=== PATIENT | male | born 1940 | race Caucasian/White ===

== ENCOUNTER 2018-07-07 17:39 | Emergency (ER) | payer OTHER ==
[~2018-07-07] VITALS: Ht 175.3 cm; Wt 122.5 kg
[~2018-07-07 17:39] MED LIST: ACET325 PO; CEFU250 PO; DULERA 100 MCG/13 GM IH; Exforge 10-3201 EACH PO; HYDACE5 PO; HYDR1TAB94 PO; LEVFLO500 PO; MULVITMIND PO; TIOT18; TRAM50 PO
[2018-07-07 18:40] LABS: BASOPHILS ABSOLUTE AUTO 0.06 K/mm3 (0.00-0.23); BASOPHILS PERCENT AUTO 1 % (0-2); EOSINOPHILS PERCENT AUTO 3 % (0-6); Hematocrit 32.2 % (37.0-53.0); IMMATURE GRAN ABSOLUTE AUTO 0.09 K/mm3 (0.00-0.10); IMMATURE GRAN PERCENT AUTO 1 % (0-1); LYMPHOCYTES ABSOLUTE AUTO 1.48 K/mm3 (0.84-5.20); LYMPHOCYTES PERCENT AUTO 12 % (21-46); MONOCYTES ABSOLUTE AUTO 1.14 K/mm3 (0.16-1.47); MONOCYTES PERCENT AUTO 9 % (4-13); Mean Corpuscular HGB 28.5 pg (26.0-34.0); Mean Corpuscular HGB Conc 31.1 g/dL (31.5-36.5); NEUTROPHILS ABSOLUTE AUTO 8.94 K/mm3 (1.96-9.15); NEUTROPHILS PERCENT AUTO 74 % (41-73); RDW Coefficient Variation 15.6 % (11.7-14.2); RDW Standard Deviation 51.4 fL (35.1-46.3); Red Blood Cell Count 3.51 M/mm3 (4.30-5.90); White Blood Cell Count 12.11 K/mm3 (4.00-11.30)
[2018-07-07 18:42] LABS: Mean Corpuscular Volume 92 fL (80-100); Mean Platelet Volume 9.6 fL (9.1-12.4); Platelet Count 214 K/mm3 (150-400)
[2018-07-07 19:18] LABS: Albumin, Blood 2.9 g/dL (3.4-5.0); Albumin/Globulin Ratio 0.7 (0.8-1.8); Bilirubin, Total 0.4 mg/dL (0.1-1.0); Bun/Creatinine Ratio 6.6 (12.0-20.0); Calcium, Blood 8.2 mg/dL (8.5-10.1); Creatinine, Blood 9.82 mg/dL (0.60-1.20); Globulin, Blood 4.3 g/dL (2.2-4.0); Potassium, Blood 4.2 mmol/L (3.5-5.5); Total Protein, Blood 7.2 g/dL (6.4-8.2)
[2018-07-07] MEDS ORDERED: **INCOMPLETE MED REC (19:54)
[2018-07-07] MEDS ORDERED: Exforge 10-3201 EACH PO ×2 (19:57→20:01)
[2018-07-07] MEDS ORDERED: ATOR10 PO (19:57)
[2018-07-07] MEDS ORDERED: TRAM50 PO (20:02)
[2018-07-07] MEDS ORDERED: FURO40 PO (20:02)
[2018-07-07] MEDS ORDERED: COMBIVENT RESPIM4 GM INH (20:02)
[2018-07-07] MEDS ORDERED: ALBU3IS INH (20:02)
[2018-07-07] MEDS ORDERED: K-Dur 20 meq T20 MEQ PO (20:03)
[2018-07-07] MEDS ORDERED: CEFP250 PO (20:23)
== END 2018-07-07 21:15 | disposition home or self-care (01) ==
LOC: ER 17:39
PROVIDERS: Physician Assistant
DX: N17.9 Acute kidney failure, unspecified (principal); N13.9 Obstructive and reflux uropathy, unspecified; J44.9 Chronic obstructive pulmonary disease, unspecified; C61 Malignant neoplasm of prostate; Z79.899 Other long term (current) drug therapy; Z79.891 Long term (current) use of opiate analgesic; I10 Essential (primary) hypertension; Z87.891 Personal history of nicotine dependence
CPT/HCPCS: 36415; 51702; 51798; 80053; 85025; 94640; 99283-25; J7030

== ENCOUNTER → 2019-06-19 | Outpatient (CLI) | payer OTHER ==
[~2019-06-19] MED LIST changes: +**INCOMPLETE MED REC; +ALBU3IS INH; +ATOR10 PO; +CEFP250 PO; +COMBIVENT RESPIM4 GM INH; +FURO40 PO; +K-Dur 20 meq T20 MEQ PO
== END | disposition home or self-care (01) ==
LOC: LAB SHORT 13:21 → LAB 13:21
DX: N39.0 Urinary tract infection, site not specified (principal)
CPT/HCPCS: 87086

== ENCOUNTER 2019-06-25 19:58 | Inpatient (IN) | payer OTHER ==
[~2019-06-25] VITALS: Ht 175.3 cm; Wt 77.1 kg
[~2019-06-25 19:58] MED LIST changes: -ALBU3IS INH; +Duoneb 2.5-0.5 M3 ML NEB
[2019-06-25 21:17] LABS: Base Excess Venous -10.7 mmol/L; Bicarbonate Venous 17.1 mmol/L (24.0-30.0); PCO2 Venous 30.2 mmHg (38-42); PO2 Venous 106 mmHg (38-42); pH Blood Venous 7.32 (7.34-7.37)
[2019-06-25 21:21] LABS: BASOPHILS ABSOLUTE AUTO 0.05 K/mm3 (0.00-0.23); BASOPHILS PERCENT AUTO 1 % (0-2); EOSINOPHILS ABSOLUTE AUTO 0.18 K/mm3 (0.00-0.68); EOSINOPHILS PERCENT AUTO 2 % (0-6); Hematocrit 40.7 % (37.0-53.0); Hemoglobin 13.5 g/dL (13.5-17.5); IMMATURE GRAN ABSOLUTE AUTO 0.07 K/mm3 (0.00-0.10); IMMATURE GRAN PERCENT AUTO 1 % (0-1); LYMPHOCYTES ABSOLUTE AUTO 1.54 K/mm3 (0.84-5.20); LYMPHOCYTES PERCENT AUTO 14 % (21-46); MONOCYTES ABSOLUTE AUTO 1.05 K/mm3 (0.16-1.47); MONOCYTES PERCENT AUTO 10 % (4-13); Mean Corpuscular HGB 28.8 pg (26.0-34.0); Mean Corpuscular HGB Conc 33.2 g/dL (31.5-36.5); Mean Corpuscular Volume 87 fL (80-100); Mean Platelet Volume 12.7 fL (9.1-12.4); NEUTROPHILS PERCENT AUTO 74 % (41-73); Platelet Count 218 K/mm3 (150-400); RDW Coefficient Variation 15.7 % (11.7-14.2); RDW Standard Deviation 50.1 fL (35.1-46.3); Red Blood Cell Count 4.68 M/mm3 (4.30-5.90); White Blood Cell Count 10.99 K/mm3 (4.00-11.30)
[2019-06-25] MEDS ORDERED: FINA5 PO (21:30)
[2019-06-25 21:45] LABS: Beta-hydroxybutyrate 6.5 mg/dL (0.2-2.8)
[2019-06-25 21:50] LABS: Troponin I <0.015 ng/mL (0.000-0.040)
[2019-06-25 21:52] LABS: Alanine Aminotransfer (ALT/SGP 26 U/L (12-78); Albumin, Blood 2.9 g/dL (3.4-5.0); Albumin/Globulin Ratio 0.7 (0.8-1.8); Alk Phos 82 U/L (50-136); Anion Gap 10 mmol/L (6-16); Aspartate Aminotrans (AST/SGOT 13 U/L (12-37); Bilirubin, Total 0.6 mg/dL (0.1-1.0); Blood Urea Nitrogen 95 mg/dL (8-24); Bun/Creatinine Ratio 29.7 (12.0-20.0); CO2, Blood 18 mmol/L (21-32); Calcium, Blood 8.3 mg/dL (8.5-10.1); Chloride, Blood 101 mmol/L (98-108); Globulin, Blood 4.1 g/dL (2.2-4.0); Glomerular Filtration Rate 20 (60-); Glucose, Blood 632 mg/dL (70-99); Potassium, Blood 5.5 mmol/L (3.5-5.5); Sodium, Blood 129 mmol/L (136-145)
[2019-06-26 01:51] LABS: Bun/Creatinine Ratio 30.8 (12.0-20.0); Calcium, Blood 8.1 mg/dL (8.5-10.1); Creatinine, Blood 2.92 mg/dL (0.60-1.20); Potassium, Blood 5.1 mmol/L (3.5-5.5)
[2019-06-26 02:58] LABS: Source, Urine Clean Catch
[2019-06-26 03:01] LABS: Bilirubin, Urine Neg (Neg); Blood, Urine 3+ (Neg); Glucose Qualitative, Urine 4+ (Neg); Ketones, Urine Neg (Neg); Leukocyte Esterase, Urine Neg (Neg); Nitrite, Urine Neg (Neg); Protein, Urine 1+ (Neg); Urobilinogen, Urine NORM (Normal)
[2019-06-26 03:07] LABS: Color, Urine Yellow (P-Yellow)
[2019-06-26 03:08] LABS: Appearance, Urine Clear (Clear); Bacteria Rare /hpf; Squamous Epithelial Cells Rare /hpf (Few); White Blood Cells, Urine Rare /hpf (0-5)
[2019-06-26 05:58] LABS: Bun/Creatinine Ratio 30.7 (12.0-20.0); Calcium, Blood 8.3 mg/dL (8.5-10.1); Creatinine, Blood 2.74 mg/dL (0.60-1.20); Potassium, Blood 4.7 mmol/L (3.5-5.5)
[2019-06-26 17:33] LABS: Bun/Creatinine Ratio 29.8 (12.0-20.0); Calcium, Blood 8.4 mg/dL (8.5-10.1); Creatinine, Blood 2.55 mg/dL (0.60-1.20); Potassium, Blood 5.1 mmol/L (3.5-5.5)
--- NOTE | 2019-06-26 18:23 | NUR ---
[id number] ASSESSMENT PATIENT AND VERBALIZING THEY ARE UNHAPPY WITH INTERRUPTIONS AND BLOOD DRAWS AND THEY BOTH REPORT THEY ARE TIRED AND WANT LEFT ALONE. PT REFUSES BLOOD DRAW AT THIS TIME. PATIENT WILL NOT ALLOW COMPLETE PHYSICAL ADMISSION ASSESSMENT TO BE COMPLETED. PER PATIENTS SHE ASSISTS PATIENT TO SELF CATH AT TIMES HE HAS DIFFICULTY VOIDING.
--- NOTE | 2019-06-26 18:25 | NUR ---
SUMMARY PT SLEEPING AT THIS TIME AND PATIENTS REQUESTS THAT HE NOT BE DISTURBED. PT JONI SHOWER WITH HIS WIFES ASSIST AND STATES VERY TIRED AFTER ACTIVITY. PT AND HIS HAVE NOT BEEN RECEPTIVE TO DIABETIC EDUCATION. PT STATES "HE DOESNT EAT SUGAR AND IT IS THE DOCTORS FAULT HIS SUGAR IS OUT OF CONTROL IT SHOULD HAVE BEEN DISCOVERED BEFORE HIS SUGAR WAS THIS HIGH" PT AND HIS ANGRY AT TIMES BUT THEN APOLOGIZE AND STATE THEY ARE JUST TIRED FROM LACK OF SLEEP AND WORRIED ABOUT HIS MEDICAL CONDITION
[2019-06-27 05:41] LABS: Albumin, Blood 2.7 g/dL (3.4-5.0); Anion Gap 8 mmol/L (6-16); Blood Urea Nitrogen 64 mg/dL (8-24); Bun/Creatinine Ratio 28.8 (12.0-20.0); CO2, Blood 18 mmol/L (21-32); Calcium, Blood 8.8 mg/dL (8.5-10.1); Chloride, Blood 116 mmol/L (98-108); Creatinine, Blood 2.22 mg/dL (0.60-1.20); Glomerular Filtration Rate 30 (60-); Glucose, Blood 278 mg/dL (70-99); Phosphorus, Blood 3.7 mg/dL (2.5-4.9); Potassium, Blood 4.9 mmol/L (3.5-5.5); Sodium, Blood 142 mmol/L (136-145)
--- NOTE | 2019-06-27 05:58 | NUR ---
SHIFT SUMMARY PT RESTED WELL T/O NIGHT. AAOX4. PT DENIES DISCOMFORT/NAUSEA/EMESIS. CHEMBG WITH COVERAGE AC+HS. PT MORE COMPLIANT WITH CARE THIS SHIFT. INDEPENDENT IN ROOM + UP TO RESTROOM. AWAITING LABS RESULTS THIS AM. NO ACUTE CHANGES OVER NIGHT. CALL LIGHT IN REACH. PT RESTING AT THIS TIME.
--- NOTE | 2019-06-27 09:49 | NUR ---
CALLED DIETITIAN FOR EDUCATIONAL SUPPORT R/T DIABETIC DIET AND FOOD CHOICES. DIETITIAN VERBALIZED THEY WOULD COME SEE PT TODAY.
--- NOTE | 2019-06-27 16:17 | NUR ---
SHIFT SUMMARY PT AND VERY ANXIOUS ABOUT TREATMENT PLAN AT START OF SHIFT. NEEDING A LOT OF DIABETIC EDUCATION. THIS RN PROVIDED PRINTED HANDOUTS. DIETARY CONSULT OCCURRED TODAY AND PT AND EXPRESS THAT IT WAS VERY HELPFUL AND THAT THEY FEEL MORE COMFORTABLE ABOUT DX AND DIET PLAN. PLANNING ON TEACHING PT HOW TO ADMINISTER INSULIN. PT IS INDEP IN ROOM AND WAS UP IN CHAIR TODAY. PT DOES SELF CATH. TELE IN PLACE. IVF INFUSING PER ORDERS. CALL LIGHT WITHIN REACH.
--- NOTE | 2019-06-27 16:39 | NUR ---
INSULIN ADMIN PT AND EDUCATED ON VERBALLY AND DEMONSTRATED PROPER USE OF INSULIN ADMINISTRATION. GIVEN TEST INSULIN PEN AND TEST SKIN PAD TO PRACTICE.
--- NOTE | 2019-06-27 18:03 | NUR ---
TELE BOX RETURNED TO PCU
[2019-06-28 05:26] LABS: Albumin, Blood 2.5 g/dL (3.4-5.0); Anion Gap 7 mmol/L (6-16); Blood Urea Nitrogen 46 mg/dL (8-24); Bun/Creatinine Ratio 24.7 (12.0-20.0); CO2, Blood 18 mmol/L (21-32); Calcium, Blood 8.4 mg/dL (8.5-10.1); Chloride, Blood 118 mmol/L (98-108); Creatinine, Blood 1.86 mg/dL (0.60-1.20); Glomerular Filtration Rate 37 (60-); Glucose, Blood 225 mg/dL (70-99); Phosphorus, Blood 3.4 mg/dL (2.5-4.9); Potassium, Blood 4.6 mmol/L (3.5-5.5); Sodium, Blood 143 mmol/L (136-145)
--- NOTE | 2019-06-28 05:49 | NUR ---
SHIFT SUMMARY: ANITRA RESTED FOR THE MAJORITY OF THE SHIFT. HE IS A&OX4, USES HIS CALL LIGHT APPROPRIATELY. HE HAS BEEN PLEASANT AND COOPERATIVE THIS SHIFT. HE DID STRAIGHT CATH HIMSELF THIS MORNING, UMEASURED VOID. HE IS HOPEFUL THAT HE MIGHT GET TO GO HOME TODAY. HE WAS RECEPTIVE AND ATTENTIVE DURING EDUCATION. HE DID STATE THAT PHLEBOTOMY HAS NOT BEEN ABLE TO DRAW LABS, OUTPATIENT AND INPATIENT, AND IS THANKFUL FOR THE MIDLINE CATHETER. HE IS TOLERATING PO INTAKE WELL. HE DENIES ANY COMPLAINTS OR CONCERNS AT THIS TIME. HE IS INDEPENDENT IN THE ROOM. WILL REPORT TO DAY SHIFT RN.
[2019-06-28] MEDS ORDERED: INSULANPEN SC (09:58)
[2019-06-28] MEDS ORDERED: Humalog100 UNIT/3 SC (09:59)
[2019-06-28] MEDS ORDERED: Humalog100 UNIT/3 (10:05)
--- NOTE | 2019-06-28 12:05 | NUR ---
DISCHARGE PT AND SPOUSE EXTENSIVELY EDUCATED ON AND RECEIVED PRINTED DC INSTRUCTIONS WHICH INCLUDES DIABETIC DIET, INSULIN ADMIN, HYPO/HYPERGLYCEMIA S/S, LOW SLIDING SCALE, HOW TO GIVE A SC INJECTION. PT HAS BEEN PROPERLY ADMINISTERING OWN INSULIN WITH THIS RN SUPERVISION AND ALSO OBSERVING. EDUCATED ON AND RECEIVED PRINTED MEDICATION LIST WITH INSULIN INSTRUCTIONS ON WHEN TO GIVE LANTUS AND HUMALOG INCLUDING LOW SLIDING SCALE HANDOUT. PT AND SPOUSE ALSO EDUCATED ON CHECKING BLOOD SUGARS ACHS AND PRN IF SYMPTOMATIC. DIETARY DID GIVE PT GLUCOMETER AND DEMONSTRATED PROPER USE. PT AND SPOUSE VERBALIZED AN UNDERSTANDING OF ALL EDUCATION PROVIDED AND VERBALIZES THAT THEY FEEL COMFORTABLE DISCHARGING HOME AND MANAGING AT HOME. NEW RX FAXED OVER TO [facility] PER PT REQUEST. HARD RX FOR GLUCOMETER, STRIPS, AND LANCETS GIVEN TO PT. PGIV DC'D. PT GIVEN INSULIN PENS + NEEDLES + ALCOHOL SWABS TO TAKE HOME PER DR. CARDOSO ORDERS. PT AND SPOUSE GATHERING PERSONAL BELONGINGS. PT EATING LUNCH AND THEN PLANNING TO DC HOME.
== END 2019-06-28 12:30 | disposition home or self-care (01) | DRG 638 ==
LOC: ER 19:58 → ERHOLD 22:55 → SURS 06-26 14:29
PROVIDERS: Internal Medicine; Physician Assistant; ADMIT Family Medicine
DX: E11.00 Type 2 diabetes mellitus with hyperosmolarity without nonketotic hyperglycemic-hyperosmolar coma (NKHHC) (principal); N17.9 Acute kidney failure, unspecified; N18.3 Chronic kidney disease, stage 3 (moderate); E11.22 Type 2 diabetes mellitus with diabetic chronic kidney disease; E78.5 Hyperlipidemia, unspecified; I12.9 Hypertensive chronic kidney disease with stage 1 through stage 4 chronic kidney disease, or unspecified chronic kidney disease; J44.9 Chronic obstructive pulmonary disease, unspecified; E66.9 Obesity, unspecified; N40.0 Benign prostatic hyperplasia without lower urinary tract symptoms; Z85.46 Personal history of malignant neoplasm of prostate; Z87.891 Personal history of nicotine dependence; Z68.25 Body mass index [BMI] 25.0-25.9, adult
CPT/HCPCS: 36415; 51798; 76770; 80048; 80053; 80069; 81001; 82010; 82550; 82803; 82947; 83036; 84443; 84484; 85025; 93005; 93010; 94640; 94760; 96360; 99285-25; A9270-GY; J1644; J1815; J7030; J7042

== ENCOUNTER → 2021-07-25 | Outpatient (CLI) | payer OTHER ==
[~2021-07-25] MED LIST changes: +FINA5 PO; +Humalog100 UNIT/3; +Humalog100 UNIT/3 SC; +INSULANPEN SC
== END | disposition home or self-care (01) ==
LOC: LAB SHORT 12:15 → PLD 12:15
DX: L30.8 Other specified dermatitis (principal)
CPT/HCPCS: 88305; 88312